=== PATIENT | male | born 1955 | race Caucasian/White ===

== ENCOUNTER 2024-08-26 20:37 | Emergency (ER) | payer MEDICARE, OTHER, SELFPAY ==
[2024-08-26 20:39] VITALS: BP 104/70
[2024-08-26 21:00] LABS: % Basophils 0.5 % (0-2); % Immature Granulocytes 0.3 % (0-0.5); % Lymphocytes 17.3 % (20.5-51.1); % Monocytes 6.6 % (1.7-9.3); % Neutrophils 74.3 % (42.2-75.2); Absolute Eosinophils 0.1 10^3/uL (0-0.7); Absolute Lymphocytes 1.5 10^3/uL (1.2-3.4); Absolute Monocytes 0.6 10^3/uL (0.1-0.6); Absolute Neutrophils 6.6 10^3/uL (1.4-6.5); Hematocrit 45.8 % (39.0-52.0); Hemoglobin 16.3 g/dL (13.0-18.0); Mean Corp Hgb Conc. 35.6 g/dL (33.0-37.0); Mean Platelet Volume 10.9 fL (7.4-10.4); Nucleated Red Blood Cells % 0 % (-); Platelet Count 168 10^3/uL (130-400); Red Blood Cell Count 5.09 10^6/uL (4.70-6.10); Red Cell Dist. Width 13.4 % (11.5-14.5); White Blood Cell Count 8.8 10^3/uL (4.8-10.8)
[2024-08-26 21:13] LABS: ALT (SGPT) 31 U/L (0-50); AST (SGOT) 32 U/L (17-59); Alkaline Phosphatase 80 U/L (38-126); Blood Urea Nitrogen 20 mg/dl (9-20); Calcium 9.2 mg/dl (8.4-10.2); Carbon Dioxide 29 mmol/L (22-30); Chloride 101 mmol/L (98-107); Glucose 129 mg/dl (70-99); Potassium 4.3 mmol/L (3.5-5.1); Sodium 135 mmol/L (135-145); Total Bilirubin 0.8 mg/dl (0.2-1.3); Total Protein 6.7 g/dl (6.3-8.2); eGFR > 60.00
[2024-08-26 21:26] LABS: Troponin I < 0.012 ng/ml
[2024-08-26 21:33] VITALS: BP 138/97
--- NOTE | 2024-08-26 21:38 | ED.GENMED ---
History of Present Illness
General
Chief Complaint: Dizziness
Source: patient and spouse
Exam Limitations: none
Time Seen by Provider: 08/26/24 21:26
History of Present Illness
History of Present Illness:
See MDM
Past History
Past History
ED Past Medical History: Cancer (Prostate cancer) and Hypercholesterolemia
ED Past Surgical History: Orthopedic and Other (Mastectomy, mastoidectomy, prostate surgery, left knee surgery)
Social History
Tobacco: Non-smoker
Alcohol: Occasional
Personal:
Living: with family
Employment: Employed
Family History
Family History: CAD; Negative Diabetes, Hypertension, Asthma or Cancer
Phy Exam
Physical Exam
Physical Exam:
See MDM
Course
Orders/Labs/Results
Orders:
Orders
08/26/24 20:43
Electrocardiogram (*1) Urgent
Reason for Study: Vertigo / Dizzy
CT Head W/o Iv Contrast Urgent
Comment:
Reason For Exam: dizziness
EKG- Treatment ONCE
08/26/24 20:51
Complete Blood Count/With Diff Urgent
Comprehensive Metabolic Panel Urgent
Troponin I Urgent
08/26/24 21:36
Meclizine [Antivert] 25 mg PO NOW STA
Abnormal Lab Results
08/26/24
20:51
MCH 32.0 H pg
(27.0-31.0)
MPV 10.9 H fL
(7.4-10.4)
Absolute Neuts (auto) 6.6 H 10^3/uL
(1.4-6.5)
Lymphocytes % 17.3 L %
(20.5-51.1)
Glucose 129 H mg/dl
(70-99)
08/26/24 20:51
08/26/24 20:51
Vital Signs
Initial and Last Documented VS:
Initial Vital Signs
Temp Pulse Resp BP Pulse Ox
98.2 F 68 20 104/70 96
08/26/24 20:39 08/26/24 20:39 08/26/24 20:39 08/26/24 20:39 08/26/24 20:39
Last Documented Vital Signs
Temp Pulse Resp BP Pulse Ox
98.3 F 65 18 138/97 93
08/26/24 21:00 08/26/24 21:00 08/26/24 21:00 08/26/24 21:33 08/26/24 21:00
MDM/Problems Addressed
Differential Diagnosis Includes:
HPI and MDM Narrative:
69-year-old male presenting with reproducible dizziness. Patient states he was more dizzy at home. He states he started not feeling well and noted that certain positions made the dizziness worse. He is not quite certain whether or not he is all
the room spinning or not. He denies recent viral illness or ear pain or fevers or any new hearing loss.
Blood work was done prior to my evaluation. No clinically relevant abnormalities noted. EKG nonischemic. On my exam, he has no cerebellar signs. He does have mild right horizontal nystagmus that is fatigable. Positive Hal-Hallpike to the left.
Left TM surgeon removed. Right TM within normal limits
Will give dose of meclizine and will obtain CT given persistent symptoms but otherwise discussed outpatient follow-up
Physical exam
General: Well appearing and non-toxic
HEENT: protecting airway. Mild right horizontal nystagmus that is fatigable
Neck: appears supple
CV: No evidence of cyanosis. Regular rate and rhythm
Resp: No accessory muscle use
Abd: Non-distended
Extremities: No deformities
Neuro: alert. Normal finger-nose bilaterally
Psych: Normal affect
Skin: Intact
Problems Addressed including Acute and Chronic Conditions affecting care:
1. Reproducible dizziness
Acuity: acute
Prognosis: stable
Details: Likely in the setting of benign paroxysmal positional vertigo. No cerebellar signs. Will reassess after meclizine
2. [ ]
Acuity: acute
Prognosis: stable
Details:
3. [ ]
Acuity: acute
Prognosis: stable
Details:
4. [ ]
Acuity: acute
Prognosis: stable
Details:
5. [ ]
Acuity:
Prognosis:
Details:
Updates
Differential Diagnosis (but not limited to): Vertigo, stroke, dehydration
Testing considered: Second troponin but he denies chest pain or shortness of breath
Drug therapy (if applicable): OTC meds, please see d/c instruction regarding Rx drugs
Amount and/or Complexity of Data Reviewed
Clinical info obtained from: Patient
External data reviewed: N/A
Labs I independently reviewed (but not limited to): Troponin normal, electrolytes within normal limits
Radiology: N/A
Pulse Ox: not hypoxic
EKG independently reviewed: Sinus rhythm, normal axis, no STEMI
Pipe Insulator Helper: N/A
Critical Care: N/A
Risk of Complication:
Social Determinants of health: Good social support
Discussed with other providers: N/A
Escalation of Care includes Admit/Obs: After being observed in the Emergency Department, pt stable for discharge.
Occasional wrong word or 'sound a like' substitutions may have occurred due to the inherent limitations of voice recognition software. Read the chart carefully and recognize, using context, where substitutions have occurred.
*Critical Care Note
Total Time (30-74mins, 75-104mins- exclusive of procedures): Not Applicable
ED Attending Note
-
Portions of this chart may have been created with voice recognition software.� Occasional wrong word or��sound alike� substitutions may have occurred due to the inherent limitations of voice recognition software.
Discharge Plan
Departure
Patient Disposition: Home (Routine Discharge)
Date of Disposition: 08/26/24
Time of Disposition: 22:56
Patient with high blood pressure during this ER visit?: No
Discharge Problem:
Vertigo
Instructions: Vertigo (a Type of Dizziness) (DC)
Prescriptions:
New
meclizine [Antivert] 25 mg Tablet,Chewable
25 mg PO BIDPRN PRN (Reason: nausea or vertigo) Qty: 10 0RF
No Action
simvastatin 40 MG tablet
80 mg PO DAILY
Niacin:
1 tab PO DAILY
ibuprofen 600 MG tablet
600 mg PO Q6H Qty: 30 0RF
atenolol
Referrals:
Matthew Paniagua MD [Active] -
UNKNOWN - PT NOT,INTERVIEWE [Family Provider] -
Activity Restrictions/Additional Instructions:
Please return for any worsening symptoms.
You may return at any time if you have further concerns.
Please follow up with your doctor at the first available appointment, preferably this week. If symptoms persist, please talk to your doctor about further testing such as brain MRI.
If symptoms persist, please follow-up with ENT.
Thank you for choosing [facility].
Interventions
Interventions:
*Risk Screen - Suicide Last Done: 08/26/24 21:29
*General Assessment Last Done: 08/26/24 20:39
*Neglect/Abuse Screening Last Done: 08/26/24 21:29
ED- Fall Risk Assessment Last Done: 08/26/24 21:41
*ED COVID-19 Vaccine History Last Done: 08/26/24 21:40
ED- Neurological Assessment Last Done: 08/26/24 21:23
ED- Cardiac Assessment Last Done: 08/26/24 21:39
ED Swallowing Screen Last Done: 08/26/24 21:23
Discharge Date and Time
Print Language: ROMANIAN
[2024-08-26] MEDS: ANTIVERT 25 MG PO (21:45)
[2024-08-26 22:00] VITALS: BP 139/102
[2024-08-26 23:23] VITALS: BP 144/90
== END 2024-08-26 23:31 | disposition home or self-care (01) ==
LOC: EMR 20:37
PROVIDERS: Emergency Medicine; EMERGENCY PHYSICIAN Student in an Organized Health Care Education/Training Program
DX: R42 Dizziness and giddiness (principal)
CPT/HCPCS: 99285; 70450; 80053; 84484; 85025; 93005